=== PATIENT | male | born 1990 | race Hispanic/Latino ===

== ENCOUNTER 2019-04-11 15:39 | Outpatient (CLI) | payer OTHER ==
--- NOTE | 2019-04-11 16:12 | RAD ---
EXAM: Two views chest PROVIDED CLINICAL HISTORY: Chest pain. COMPARISON: None FINDINGS: Cardiac silhouette and pulmonary vasculature are within normal limits. The lungs are clear. The osse ous structures have a normal appearance. IMPRESSION: No acute cardiopulmonary process.
== END 2019-04-11 15:40 | disposition home or self-care (01) ==
LOC: BICRAD 15:39
PROVIDERS: ATTEND Family Medicine
DX: R07.9 Chest pain, unspecified (principal)
CPT/HCPCS: 71046

== ENCOUNTER 2020-03-26 07:34 | Outpatient (CLI) | payer OTHER ==
--- NOTE | 2020-03-26 09:23 | RAD ---
XR Knee Rt 4 View STANDARD HISTORY: Fall, right knee pain FINDINGS: No fracture or dislocation is identified.
== END 2020-03-26 07:35 | disposition home or self-care (01) ==
LOC: BICRAD 07:34
PROVIDERS: ATTEND Family Medicine
DX: M25.561 Pain in right knee (principal)